=== PATIENT | male | born 1995 | race Caucasian/White ===

== ENCOUNTER 2017-01-13 13:51 | Emergency (ER) | payer BC, OTHER ==
[~2017-01-13] VITALS: Ht 177.8 cm; Wt 91.5 kg
[~2017-01-13 13:51] MED LIST: VICO5TAB
[2017-01-13] MEDS ORDERED: KETOROLAC 60 MG/2 ML VIAL (J1885) IM ONE (15:30)
--- NOTE | 2017-01-13 15:35 | REP ---
LUMBAR SPINE, FIVE VIEWS: HISTORY: Trauma. There is no acute fracture. The intervertebral discs are normal in height. There are 10 mm of grade 1 spondylolisthesis of L5 on S1. There appear to be L5 pars defects. IMPRESSION: Grade 1 spondylolisthesis of L5 on S1 with associated L5 pars defects. Signed by Kenneth Campbell MD 01/13/2017 03:40 P
[2017-01-13] MEDS ORDERED: CYCL10TA PO (15:57)
[2017-01-13 16:04] VITALS: BP 136/75
== END 2017-01-13 16:11 | disposition home or self-care (01) ==
LOC: M ED 13:51
DX: M54.5 Low back pain (principal)
CPT/HCPCS: 72110; 96372; 99282; J1885

== ENCOUNTER → 2018-11-22 | Outpatient (CLI) | payer BC ==
[~2018-11-22] MED LIST changes: +CYCL10TA PO
--- NOTE | 2018-11-23 03:52 | REP ---
Clinical: Heel pain. Technique: Axial and lateral views of the right calcaneus. Findings: Osseous structures, joint spaces, and surrounding soft tissues are normal. Impression: Normal right calcaneus radiographs. Electronically Signed by Levar Mosqueda MD 11/23/2018 03:43 A
== END ==
LOC: M ADAMS 12:55
PROVIDERS: ATTEND Physician Assistant
DX: M79.671 Pain in right foot (principal)

== ENCOUNTER 2018-12-05 21:13 | Emergency (ER) | payer BC ==
[~2018-12-05] VITALS: Ht 177.8 cm; Wt 102.6 kg
[2018-12-05 21:14] VITALS: BP 165/94
[2018-12-05] MEDS ORDERED: AUGM875T28 PO (23:38)
[2018-12-05] MEDS ORDERED: AUGMENTIN 875 MG TAB PO ONE (23:45)
== END 2018-12-05 23:51 | disposition home or self-care (01) ==
LOC: M ED 21:13
DX: K61.0 Anal abscess (principal); K64.9 Unspecified hemorrhoids; R00.0 Tachycardia, unspecified

== ENCOUNTER 2018-12-07 11:24 | Emergency (ER) | payer BC ==
[~2018-12-07] VITALS: Ht 177.8 cm; Wt 101.8 kg
[2018-12-07 11:24] VITALS: BP 146/81
[~2018-12-07 11:24] MED LIST changes: +AUGM875T28 PO
== END 2018-12-07 12:32 | disposition home or self-care (01) ==
LOC: M ED 11:24
DX: K61.1 Rectal abscess (principal); Z79.2 Long term (current) use of antibiotics

== ENCOUNTER 2019-06-01 22:08 | Emergency (ER) | payer BC ==
[~2019-06-01] VITALS: Ht 175.3 cm; Wt 100.0 kg
[2019-06-01 23:45] VITALS: BP 122/65
--- NOTE | 2019-06-02 07:59 | REP ---
Right calf series: Two views. History: Trauma. Findings: AP and lateral views of the proximal calf demonstrate normal bones joints and soft tissues. A normal fabella is seen at the knee. Impression: Negative radiographs of the right calf. Electronically Signed by Ty Lacy MD 06/02/2019 07:51 A
--- NOTE | 2019-06-02 08:00 | REP ---
Right ankle series: Four views. History: Trauma. Findings: Four views of the right ankle and distal calf show normal bones, joints, and soft tissues. No fracture or subluxation is seen. Impression: No fracture noted. Electronically Signed by Ty Lacy MD 06/02/2019 07:52 A
== END 2019-06-02 00:01 | disposition home or self-care (01) ==
LOC: M ED 22:08 → EDBD 22:08 → M ED 06-02 00:01
DX: S93.401A Sprain of unspecified ligament of right ankle, initial encounter (principal); W10.9XXA Fall (on) (from) unspecified stairs and steps, initial encounter; Y92.89 Other specified places as the place of occurrence of the external cause; Y93.89 Activity, other specified; Y99.8 Other external cause status

== ENCOUNTER → 2020-04-21 | Outpatient (CLI) | payer BC ==
[~2020-04-21] MED LIST changes: +CYCL-707 PO; -CYCL10TA PO
[2020-04-21 10:16] LABS: BASO % 0.5 % (0.0-1.0); EOS # 0.1 10^3/uL (0.0-0.5); EOS % 1.2 % (0.0-3.0); HEMATOCRIT 48.1 % (42.0-52.0); HEMOGLOBIN 16.7 g/dl (13.5-17.5); LYMPH # 2.8 10^3/uL (1.5-5.0); LYMPH % 43.9 % (24.0-44.0); MEAN CORPUSCULAR HEMOGLOBIN 29.9 pg (27.0-33.0); MEAN CORPUSCULAR HGB CONC 34.7 g/dl (32.0-36.5); MEAN CORPUSCULAR VOLUME 86.2 fl (80.0-96.0); MONO # 0.7 10^3/uL (0.0-0.8); MONO % 10.6 % (0.0-5.0); NEUTROPHILS # 2.8 10^3/uL (1.5-8.5); NEUTROPHILS % 43.6 % (36.0-66.0); PLATELET COUNT, AUTOMATED 329 10^3/uL (150-450); RED BLOOD COUNT 5.58 10^6/uL (4.30-6.10); WHITE BLOOD COUNT 6.4 10^3/uL (4.0-10.0)
[2020-04-21 11:19] LABS: ALBUMIN 4.6 GM/DL (3.2-5.2); ALT/SGPT 36 U/L (12-78); BILIRUBIN,TOTAL 0.5 MG/DL (0.2-1.0); BLOOD UREA NITROGEN 12 MG/DL (7-18); CALCIUM LEVEL 9.9 MG/DL (8.5-10.1); CARBON DIOXIDE LEVEL 31 MEQ/L (21-32); CHLORIDE LEVEL 102 MEQ/L (98-107); CREATININE FOR GFR 1.03 MG/DL (0.70-1.30); GLOMERULAR FILTRATION RATE > 60.0 (>60); GLUCOSE, FASTING 97 MG/DL (70-100); POTASSIUM SERUM 4.2 MEQ/L (3.5-5.1); SODIUM LEVEL 138 MEQ/L (136-145); TOTAL PROTEIN 7.8 GM/DL (6.4-8.2)
== END ==
LOC: M LAB 09:56
PROVIDERS: ATTEND Physician Assistant
DX: K21.9 Gastro-esophageal reflux disease without esophagitis (principal)

== ENCOUNTER → 2022-06-10 | Outpatient (CLI) | payer BC ==
[2022-06-10 13:48] LABS: BASO % 0.2 % (0.0-1.0); EOS % 0.1 % (0.0-3.0); HEMATOCRIT 44.5 % (42.0-52.0); HEMOGLOBIN 15.4 g/dl (13.5-17.5); LYMPH # 1.7 10^3/uL (1.5-5.0); LYMPH % 8.1 % (24.0-44.0); MEAN CORPUSCULAR HGB CONC 34.6 g/dl (32.0-36.5); MEAN CORPUSCULAR VOLUME 86.7 fl (80.0-96.0); MONO # 1.5 10^3/uL (0.0-0.8); MONO % 7.2 % (2.0-8.0); NEUTROPHILS # 17.9 10^3/uL (1.5-8.5); NEUTROPHILS % 83.7 % (36.0-66.0); PLATELET COUNT, AUTOMATED 328 10^3/uL (150-450); RED BLOOD COUNT 5.13 10^6/uL (4.30-6.10); WHITE BLOOD COUNT 21.3 10^3/uL (4.0-10.0)
[2022-06-10 14:36] LABS: ERYTHROCYTE SEDIMENTATION RATE 35 mm/hr (0-15)
== END ==
LOC: M RAD 12:57
PROVIDERS: ATTEND Physician Assistant Medical
DX: M25.562 Pain in left knee (principal)